=== PATIENT | male | born 1980 | race Caucasian/White ===

== ENCOUNTER 2022-11-11 14:30 | Outpatient (CLI) | payer OTHER ==
--- NOTE | 2022-11-11 17:49 | XRAY Report ---
PROCEDURE: Lumbar Spine 2 View INDICATIONS: STRAIN OF THE LOW BACK MUSCLES AND FASCIA TECHNIQUE: 3 views of the lumbar spine were acquired. COMPARISON: None. FINDINGS: Bones: 5 [id number]-rod-[id number] vertebrae are present. There is straightening of normal lumbar lordosis. No vertebral body compression fractures. Mild degenerative endplate changes are seen at L4-5 and L5- S1 levels. No suspicious bony lesions. Soft tissues: Overlying bowel gas pattern is normal. No suspicious soft tissue calcifications. IMPRESSION: Straightening of normal lumbar lordosis. No acute compression fracture or spondylolisthe sis. Mild degenerative disc disease in lower lumbar spine. Reviewed by: Brandon Ferrari MD on 11/11/2022 5:48 PM PDT Approved by: Brandon Ferrari MD on 11/11/2022 5:48 PM PDT Station ID: [id number]
== END 2022-11-11 14:45 | disposition home or self-care (01) ==
LOC: DI.N 14:30
PROVIDERS: ATTEND Family Medicine
DX: S39.012A Strain of muscle, fascia and tendon of lower back, initial encounter (principal); M51.36 Other intervertebral disc degeneration, lumbar region